=== PATIENT | female | born 1955 | race Caucasian/White ===

== ENCOUNTER → 2017-12-18 11:11 | Outpatient (CLI) | payer MEDICARE, SELFPAY ==
[2017-12-18 12:23] LABS: Amphetamine Urine VISTA NEGATIVE (<1000 ng/mL); Barbiturate Urine VISTA NEGATIVE (< 200 ng/mL); Benzodiazepine Urine VISTA NEGATIVE (< 200 ng/mL); Cocaine Urine VISTA NEGATIVE (< 300 ng/mL); Ecstacy Urine VISTA NEGATIVE (< 500 ng/mL); Methadone Urine VISTA NEGATIVE (< 300 ng/mL); PCP Urine VISTA NEGATIVE (< 25 ng/mL); THC Urine VISTA NEGATIVE (< 50 ng/mL); Vista UDS pH Range 7
== END ==
PROVIDERS: Family Provider Internal Medicine; PCP Internal Medicine; Visit Provider Anesthesiology Pain Medicine
DX: F11.20 Opioid dependence, uncomplicated (principal); M51.26 Other intervertebral disc displacement, lumbar region
CPT/HCPCS: 80307

== ENCOUNTER 2023-03-17 09:58 | Emergency (ER) | payer MEDICARE, MEDICAID, SELFPAY ==
[2023-03-17 09:59] VITALS: BP 136/75; PULSE 89; RESP 16; TEMP 36.2; O2SAT 97; BMI 31.6
--- NOTE | 2023-03-17 10:27 | EDS_ITS ---
HPI History of Present Illness Chief Complaint: Back Informant: patient and family Narrative Narrative: Worsening right-sided lower back pain rating down her right leg to her ankle. No weakness. No loss of bowel or bladder control. Been having on and off sciatica symptoms for the past 30 years. Currently on gabapentin 600 mg twice daily. Recently use ibuprofen with some improvement. No improvement of baclofen. None taken today. She seen Dr. Munguia in the past, had injections however last time was 5 years ago which helped her symptoms. Has tolerated Percocet in the past. She states was inactive for a month due to cataract surgery started on housework 2 days ago when symptoms started. Prior similar symptoms: Yes and With Prior Back Pain PFSH PFS Medical History Diabetes Herniated cervical disc Home Medications ondansetron 4 mg disintegrating tablet 4 mg PO Q8H PRN PRN Nausea #10 tabs 07/02/15 [Rx Last Taken Unknown] ibuprofen 600 mg tablet 600 mg PO Q6H PRN PRN pain #20 TABLETS 03/17/23 [Rx Last Taken Unknown] oxycodone-acetaminophen 5 mg-325 mg tablet 1 tab PO Q6H PRN PRN Pain 3 days #12 TABLETS 03/17/23 [Rx Last Taken Unknown] Allergy/AdvReac Type Severity Reaction Status Date / Time ciprofloxacin [From Cipro] Allergy Rash Verified 03/17/23 09:59 ciprofloxacin HCl Allergy Rash Verified 03/17/23 09:59 [From Cipro] codeine Allergy Rash Verified 03/17/23 09:59 Penicillins [PCN] Allergy Swelling Verified 03/17/23 09:59 Surgical History H/O eye surgery History of laparoscopic cholecystectomy History of tonsillectomy Social History Smoking Status: Former smoker ROS ROS ED Constitutional Constitutional ED: Denies chills, fever(s) or sweats Eyes Eyes: Denies change in vision ENT ENT ED: Denies dysphagia or sore throat Cardiovascular Cardiovascular: Denies chest pain, leg edema, palpitations or racing heartbeat Respiratory/Chest Respiratory/Chest: Denies cough, dyspnea or dyspnea on exertion Gastrointestinal Gastrointestinal: Denies abdominal pain, diarrhea, nausea or vomiting Genitourinary Genitourinary ED: Denies dysuria, hematuria or urinary frequency Musculoskeletal Musculoskeletal: Reports back pain; Denies extremity pain or neck pain Integumentary Denies rash or wounds Neurologic Neurologic: Denies headache(s), paresthesias or weakness EXAM Physical Exam Const Vital Signs: 03/17/23 09:59 Temperature 97.2 F L Temperature Source Temporal Pulse Rate 89 Respiratory Rate 16 Blood Pressure 136/75 H Blood Pressure Mean 95 Pulse Ox 97 Oxygen Delivery Method Room Air Positive well nourished and well developed General Appearance ED: well developed and NAD HEENT Reports moist mucous membranes normocephalic and atraumatic Eyes PERRL, EOMs intact bilaterally and conjunctivae normal General Eye ED: Yes normal appearance of both eyes Neck no lymphadenopathy and supple General: Negative for tenderness Chest Wall Chest: Negative for tenderness Resp normal respiratory effort and normal air movement Effort and Inspection: symmetric chest movement; Negative for respiratory distress Cardio regular rate, regular rhythm and no murmurs Peripheral Pulses: pulses 2+ throughout GI normal to inspection, nondistended, normoactive bowel sounds and non-tender Palpation: Negative for guarding or rebound tenderness present Back/Spine no CVA tenderness Back/Spine Narrative: No midline tenderness mild paralumbar tenderness straight leg test negative 1+ patellar reflex bilaterally. Pulses intact distally. Extremity normal to inspection General Extremety ED: Negative for edema or tenderness General Extremity: Negative for edema Neuro oriented x3 and no sensory deficits noted Sensorium / Orientation: awake and alert Skin no rashes or lesions noted and no wounds MDM MDM MDM Narrative Medical decision making narrative: Interventions / MDM: Differential diagnosis: Sciatica, disc herniation, degenerative disc disease Diagnosis considered but do not suspect: No cauda equina symptoms My EKG interpretation: N/A Imaging independently reviewed and interpreted by myself: N/A External documents reviewed: N/A Test considered but not ordered:N/A ED course: Patient presented with sciatica symptoms. She is diabetic states recent sugars 140. She seen Dr. Munguia in the past with injections been 5 years ago. She is currently on gabapentin. Treated with Toradol Kenalog in the ED. She will monitor her glucose. She will follow-up with Dr. Munguia as an outpatient further treatment as needed. Prescription for ibuprofen and short course of oxycodone to use as needed. Of note she does not seen pain management for 5 years PCP writes her gabapentin. All questions answered. Re-evaluation: stable Disposition discussed with patient/family/significant other: Patient and family Case discussed with consulting clinician: N/A This note was generated with [email or web address] dictation software. It may contain incorrect words, spelling, and punctuation that were not noted in checking the note before signing. Discharge Plan Triage Chief Complaint: Back ED Provider: Kostas Dailey Dx/Rx/DC Orders Clinical Impression: Right-sided low back pain with sciatica, History of diabetes mellitus Instructions: ED Sciatica Prescriptions: New ibuprofen 600 mg tablet 600 mg PO Q6H PRN PRN (Reason: pain) Qty: 20 0RF oxycodone-acetaminophen [oxycodone-acetaminophen] 5-325 mg tablet 1 tab PO Q6H PRN PRN (Reason: Pain) 3 Days Qty: 12 0RF No Action ondansetron 4 MG tablet 4 mg PO Q8H PRN PRN (Reason: Nausea) Qty: 10 0RF Primary Care Provider: Mayra Lucero Referrals: Fidencio Munguia DO [Non-Staff] - 1 Week if not improving Mayra Lucero MD [Primary Care Provider] - Activity Restrictions/Additional Instructions: Continue gabapentin. Take medication as prescribed. Status post Kenalog monitor your blood glucose. Follow-up with Dr. Munguia for further treatment as he has helped in the past. Disposition Disposition: Home, Self Care
[2023-03-17] MEDS: Ketorolac 30 MG/ML Syringe IM (10:32)
[2023-03-17] MEDS: Triamcinolone Acetonide 40 MG/ML Vial IM (10:32)
== END 2023-03-17 11:31 | disposition home or self-care (01) ==
LOC: ED 10:46
PROVIDERS: Emergency Provider Emergency Medicine; PCP Internal Medicine; Visit Provider Emergency Medicine
DX: M54.41 Lumbago with sciatica, right side (principal); E11.9 Type 2 diabetes mellitus without complications; Z87.891 Personal history of nicotine dependence; Z79.899 Other long term (current) drug therapy
CPT/HCPCS: 96372; 99283

== ENCOUNTER 2024-09-08 10:17 | Emergency (ER) | payer MEDICARE, MEDICAID, SELFPAY ==
[2024-09-08 10:17] VITALS: BP 142/65; PULSE 101; RESP 18; TEMP 36.6; O2SAT 98
[2024-09-08 10:20] VITALS: BMI 35.4
--- NOTE | 2024-09-08 10:25 | EX.ED.DYSGE1 ---
HPI History of Present Illness Chief Complaint: General Illness [facility] Medical History Diabetes Herniated cervical disc Home Medications ?Medication ?Instructions ?Recorded ?Last Taken ?Type ondansetron 4 mg disintegrating 4 mg PO Q8H PRN PRN Nausea #10 tabs 07/02/15 Unknown Rx tablet ibuprofen 600 mg tablet 600 mg PO Q6H PRN PRN pain #20 03/17/23 Unknown Rx TABLETS oxycodone-acetaminophen 5 mg-325 1 tab PO Q6H PRN PRN Pain 3 days 03/17/23 Unknown Rx mg tablet #12 TABLETS oxycodone 5 mg tablet 5 mg PO Q6H PRN pain 4 days #16 09/08/24 Unknown Rx tabs Allergy/AdvReac Type Severity Reaction Status Date / Time ciprofloxacin (From Cipro) Allergy Rash Verified 09/08/24 10:18 ciprofloxacin HCl (From Allergy Rash Verified 09/08/24 10:18 Cipro) codeine Allergy Rash Verified 09/08/24 10:18 Penicillins (PCN) Allergy Swelling Verified 09/08/24 10:18 Surgical History H/O eye surgery History of laparoscopic cholecystectomy History of tonsillectomy Social History Smoking Status: Former smoker EXAM Physical Exam Const Vital Signs: 09/08/24 10:17 09/08/24 10:24 09/08/24 14:17 Temperature 98 F Temperature Source Temporal Pulse Rate 101 H 78 Respiratory Rate 18 16 Respiratory Effort Normal Respiratory Pattern Normal Blood Pressure 142/65 H Blood Pressure Mean 90 Pulse Ox 98 98 Oxygen Delivery Method Room Air Room Air MDM MDM MDM Narrative Medical decision making narrative: HISTORY OF PRESENT ILLNESS: 69-year-old female presents with concern for myalgias, headache. Notes this began Saturday started with a headache and noted diffuse bodyaches, notes severe left lower quad abdominal pain and left hip pain. Notes some difficulty ambulating secondary to the pain. Notes low-grade fevers at home. Denies any sick contacts. Denies any cough or shortness of breath. Denies any chest pain. Denies any urinary complaints. Denies any vomiting or diarrhea. REVIEW OF SYSTEMS: Pertinent positives: Myalgia, headache Pertinent negatives: CP, SOB, Fever, Vomiting. PHYSICAL EXAM: Nursing triage notes reviewed, Vital signs reviewed Constitutional: please see [facility] HENT: MMM Eyes: Pupils equal round and reactive to light, Extraocular muscles intact Neck: No stridor, no JVD, full neck ROM Lungs: Clear to auscultation, No wheezing or rales. No increased work of breathing, no conversational dyspnea, no accessory muscle use, no nasal flaring. No respiratory distress noted Heart: Regular rate and rhythm, No murmurs, No rubs and No gallops, 2+ distal pulses (radial, femoral, posterior tibial) in all extremities Abdomen: Soft, there is no tenderness, rigidity, rebound or guarding, no obvious peritoneal signs, no palpable pulsatile abdominal masses, no auscultated abdominal bruit : No CVAT Extremities: No edema Neuro: Alert and oriented x3, neuro exam at baseline, cranial nerves II through XII are intact. No pain with extraocular muscle movement. There is negative test of skew. 5 of 5 strength in upper and lower extremities in flexion extension. Intact sensation to light touch in upper and lower extremity dermatomes. No truncal or extremity ataxia. No dysdiadochokinesia. Normal gait. 2+ reflexes in upper and lower extremities. No meningeal signs. Negative Babinski. NIH of 0. Skin: No rash or lesions noted MEDICAL DECISION MAKING: Chief Complaint: Myalgia, headache External records reviewed: Reviewed prior imaging studies Factors affecting care: Hyperlipidemia, type 2 diabetes, hypertension, anxiety, sciatica Social determinants of health: none History obtained from others: none Consults: none [facility] Narrative: The patient was initially hemodynamically stable, afebrile and nontoxic-appearing. Exam without focal deficits. Left hip TTP with walking however no palpable joint effusion, no redness, no warmth, no pain on forced exam, no exquisite pain with range of motion I considered the following differential diagnosis: ICH, diverticulitis or other acute intra-abdominal pathology, left hip fracture dislocation, septic arthritis, UTI, pneumonia, COVID, RSV, flu I obtained a broad lab and imaging workup to further elucidate etiology of the patient's complaints. I initially treat the patient with IV morphine, 5 mg of IV Reglan and eventually once I sure the patient had no intracranial bleeding IV Toradol. ALL IMAGES (IF OBTAINED) HAVE BEEN PERSONALLY REVIEWED AND INTERPRETED BY MYSELF. CT scan of the head shows no evidence of ICH CT scan abdomen/pelvis shows no evidence of acute intra-abdominal pathology CT scan of the left hip shows no evidence of fracture or dislocation, signs of inflammation or effusion to suggest septic arthritis. CT scan did show joint space narrowing consistent with likely arthritis which may be the precipitating cause of her left hip pain High-sensitivity troponin is negative, no evidence of myocardial ischemia CBC with no leukocytosis, mild anemia, no thrombocytopenia BMP without evidence of significant electrolyte abnormalities, no anion gap, no acute kidney injury. LFTs show no evidence of hepatobiliary pathology. UA with evidence of urinary inflammation but no obvious urinary infection COVID/flu/RSV are negative The synthesis of the patient's history, physical exam, labs and images suggest no acute life-limiting etiology specifically no sign of septic arthritis at this time. The patient was able to ambulate here without significant difficulty after anti-inflammatories and narcotic pain She will be discharged with oral narcotics and instructions to take Tylenol and ibuprofen. Outpatient orthopedic follow-up arranged for evaluation for left hip osteoarthritis. The patient and/or family, caregivers express understanding. The patient and/or family, caregivers agrees with the plan. Shared decision making: I will have a discussion with the patient and or visitors regarding risk/benefits of further testing or admission. They will be made aware of of the risk/benefits inherent in this decision they will be given the opportunity to voice understanding. Total critical care time today provided was at least 0 minutes. This excludes separately billable procedures. Critical care time (if documented) is secondary to the patient having high probability of clinically significant/life threatening deterioration in the patient's condition which required my urgent intervention. Impression: 1. Left hip pain 2. Left hip arthritis 3. Myalgias Dispo: Discharge home This note was generated with [employer] dictation software. It may contain incorrect words, spelling, and punctuation that were not noted in review of the chart prior to signing. Lab Data Labs: Laboratory Results - last 24 hr 09/08/24 09/08/24 11:10 14:11 WBC 9.1 RBC 4.39 Hgb 11.1 L Hct 35.4 L MCV 80.6 L MCH 25.3 L MCHC 31.4 L RDW Std Deviation 47.3 H RDW Coeff of Yaya 16.0 H Plt Count 281 MPV 10.3 Immature Gran % (Auto) 0.600 Neut % (Auto) 76.0 H Lymph % (Auto) 13.3 L Phelps % (Auto) 9.1 Eos % (Auto) 0.7 Baso % (Auto) 0.3 Absolute Neuts (auto) 6.9 Absolute Lymphs (auto) 1.21 Nucleated RBC % 0 Sodium 138 Potassium 3.9 Chloride 104 Carbon Dioxide 27.0 Anion Gap 7 BUN 11 Creatinine 0.72 Estim Creat Clear Calc 64.83 Est GFR (MDRD) Af Amer 104 Est GFR (MDRD) Non-Af 86 BUN/Creatinine Ratio 15.4 Glucose 146 H Calcium 9.2 Total Bilirubin 0.60 AST 17 ALT 18 Alkaline Phosphatase 55 Troponin I High Sens 3 Total Protein 7.4 Albumin 3.3 Globulin 4.1 Albumin/Globulin Ratio 0.8 L Urine Color Yellow Urine Clarity Clear Urine pH 6.0 Ur Specific Henderson 1.015 Urine Protein Negative Urine Glucose (UA) Normal Urine Ketones Negative Urine Occult Blood 25 H Urine Nitrite Negative Urine Bilirubin 1 H Urine Urobilinogen 4 H Ur Leukocyte Esterase 100 H Urine RBC 0 SEEN Urine WBC 0-5 SEEN Ur Squamous Epith Cells 0-5 SEEN Urine Bacteria 0 SEEN Urine Mucus 0 SEEN Radiography Diagnostic Testing: Clinical Impression(s) from Imaging Studies Abdomen CT 09/08/24 10:47 IMPRESSION: No suspicious solid organ abnormality Retained stool throughout the colon No free intraperitoneal fluid, air, or suspicious adenopathy Uterus is present, the endometrium cannot be accurately evaluated with CT Electronically Signed: Tong Veras MD at 13:17 EST , Brain CT 09/08/24 10:47 IMPRESSION: Age consistent changes, no acute findings Electronically Signed: Tong Veras MD at 13:18 EST , Lower Extremity CT 09/08/24 10:47 IMPRESSION: Age consistent degenerative changes, no acute findings Electronically Signed: Tong Veras MD at 13:20 EST , Chest X-Ray 09/08/24 12:04 IMPRESSION: No acute pulmonary process Electronically Signed: Tong Veras MD at 12:14 EST , Discharge Plan Triage Chief Complaint: General Illness ED Provider: Dale Mortensen Dx/Rx/DC Orders Clinical Impression: Arthritis of hip Instructions: ED Osteoarthritis Prescriptions: New oxycodone 5 mg tablet 5 mg PO Q6H PRN (Reason: pain) 4 Days Qty: 16 0RF No Action ondansetron 4 MG tablet 4 mg PO Q8H PRN PRN (Reason: Nausea) Qty: 10 0RF ibuprofen 600 mg tablet 600 mg PO Q6H PRN PRN (Reason: pain) Qty: 20 0RF oxycodone-acetaminophen [oxycodone-acetaminophen] 5-325 mg tablet 1 tab PO Q6H PRN PRN (Reason: Pain) 3 Days Qty: 12 0RF Primary Care Provider: Mayra Lucero Referrals: Mayra Lucero MD [Primary Care Provider] - Hugo Jean-Baptiste DO [Med Staff - Active Staff] - Activity Restrictions/Additional Instructions: Thank you for trusting us with your care today! I suspect your left hip pain is secondary to age-related degenerative changes and left hip arthritis. Please take Tylenol (2 pills, 650 mg), ibuprofen (2 pills, 400 mg) every 6 hours as needed for pain and fever control. Please take oxycodone as needed for breakthrough pain if the above regimen does not control your pain. Please return to the emergency department if your symptoms change or worsen. Please follow with your primary care physician and orthopedic surgery for further outpatient evaluation and management. Print Language: Pashto Disposition Disposition: Home, Self Care
--- NOTE | 2024-09-08 10:47 | CT_ITS ---
STUDY: CT BRAIN WITHOUT CONTRAST REASON FOR EXAM: Female, 69 years old. Severe headache RADIATION DOSAGE (If Supplied By Facility): CTDIvol = ( 44.99 ) mGy, DLP = ( 779.24 ) mGycm TECHNIQUE: Transaxial CT imaging of the brain was performed without administration of intravenous contrast material. Individualized dose optimization techniques were used for this CT. COMPARISON: No relevant priors. FINDINGS: Normal soft tissue structures. Normal calvarium. Normal size ventricles and extra-axial spaces for the patient''s age. Normal white matter tracts of the cerebral hemispheres. Normal basal ganglia and thalami. Normal brainstem. Normal cerebellum. There is no intracranial hemorrhage. There are no findings of an acute ischemic infarction. Normal visualized paranasal sinuses. CT/Brain/Head without Contrast IMPRESSION: Age consistent changes, no acute findings Electronically Signed: Tong Veras MD at 13:18 EST ,
--- NOTE | 2024-09-08 10:47 | CT_ITS ---
STUDY: CT LEFT HIP REASON FOR EXAM: Female, 69 years old. Pain, stiffness CONTRAST: None. TECHNIQUE: Transaxial imaging of the hip was performed with reformatted sagittal and coronal images. The protocol utilizes one or more of the following dose reduction techniques: automated exposure control, adjustment of mA and/or kV according to patient size,and/or use of iterative reconstruction technique. COMPARISON: No relevant prior comparison study available FINDINGS: HIP Normal hip joint with age consistent articular joint space narrowing. Normal acetabulum. Normal femoral neck and intertrochanteric region. VISUALIZED OSSEOUS PELVIS Normal superior and inferior pubic rami. Normal pubic symphysis. Normal bilateral ischial tuberosity. Normal visualized iliac wing, sacroiliac joint, and sacral ala. Normal visualized soft tissue structures of the pelvis. CT/Extremity Lower without Contra IMPRESSION: Age consistent degenerative changes, no acute findings Electronically Signed: Tong Veras MD at 13:20 EST ,
--- NOTE | 2024-09-08 10:47 | CT_ITS ---
STUDY: CT ABDOMEN AND PELVIS WITHOUT CONTRAST REASON FOR EXAM: Female, 69 years old. Left lower quadrant abdominal pain RADIATION DOSAGE (If Supplied By Facility): CTDIvol = ( 11.94 ) mGy, DLP = ( 614.50 ) mGycm TECHNIQUE: Transaxial images were obtained from the dome of the diaphragm to the symphysis pubis with oral contrast, and without intravenous contrast. Sagittal and coronal images were reconstructed. Individualized dose optimization techniques were used for this CT. COMPARISON: None. FINDINGS: The visualized lung bases are unremarkable. The visualized portions of the heart are within normal limits. Normal liver. There are surgical clips in the gallbladder fossa consistent with a prior cholecystectomy. Normal spleen. Normal pancreas. Normal bilateral adrenal glands. Normal right kidney. Normal left kidney. Normal visualized stomach. Normal small intestine. Retained stool throughout the colon There is non-visualization of the appendix. Normal abdominal aorta. Normal inferior vena cava. Normal retroperitoneum. Normal urinary bladder. The uterus is present, the endometrium cannot be accurately evaluated with CT. Normal abdominal wall. There are degenerative changes of the visualized lumbar spine and pelvis. CT/Abdomen/Pel W ORAL Cont Only IMPRESSION: No suspicious solid organ abnormality Retained stool throughout the colon No free intraperitoneal fluid, air, or suspicious adenopathy Uterus is present, the endometrium cannot be accurately evaluated with CT Electronically Signed: Tong Veras MD at 13:17 EST ,
--- NOTE | 2024-09-08 10:47 | EKG12_ITS ---
Test Reason : GENERAL Blood Pressure : */* mmHG Vent. Rate : 89 BPM Atrial Rate : 89 BPM P-R Int : 152 ms QRS Dur : 88 ms QT Int : 364 ms P-R-T Axes : 37 9 33 degrees QTcB Int : 442 ms Normal sinus rhythm Possible Inferior infarct , age undetermined Abnormal ECG Confirmed by TASHI BRANDON MD ([id number]), manager editorial KEKE RAM ([id number]) on 09/10/2024 6:10:36 AM Referred By: Confirmed By: TASHI BRANDON MD
[2024-09-08] MEDS: Metoclopramide 10 MG/2 ML Vial 5 MG IV (11:09)
[2024-09-08] MEDS: Morphine 2 MG/ML Syringe IV (11:09)
[2024-09-08 11:21] LABS: Absolute Lymphocyte Count 1.21 X10^3/uL (0.83-4.51); Absolute Neutrophil Count 6.9 X10^3/uL (2.0-7.7); Basophil# 0.03 X10^3/uL; Basophil% 0.3 % (0-1); Eosinophil# 0.06 X10^3/uL; Eosinophils% 0.7 % (0-5); Hematocrit 35.4 % (37-47); Hemoglobin 11.1 g/dL (12.0-15.0); Lymphocyte # 1.21 X10^3/ul (0.83-4.51); Lymphocyte % 13.3 % (19-41); Mean Corp Hgb Conc 31.4 g/dL (32-36); Mean Corpuscular Hgb 25.3 pg (27.0-32.0); Mean Corpuscular Volume 80.6 fL (81-99); Mean Platelet Vol. 10.3 fl (6.2-12.0); Monocyte# 0.83 X10^3/uL; Monocyte% 9.1 % (0-10); NRBC Flagged by Analyzer 0 % (0-5); Neutrophil # 6.91 X10^3/uL (2.7-7.7); Platelet Count 281 K/mm3 (150-450); RBC Distribution Width SD 47.3 fl (35.1-43.9); Red Blood Count 4.39 M/mm3 (4.2-5.4); White Blood Count 9.1 K/mm3 (4.4-11.0)
[2024-09-08 11:39] LABS: ALB/GLOB Ratio 0.8 RATIO (0.9-2.4); AST(SGOT) 17 U/L (15-37); Alanine Aminotransfer ALT/SGPT 18 U/L (13-56); Albumin, Serum 3.3 g/dL (3.2-5.0); Alkaline Phosphatase 55 U/L (45-117); Anion Gap 7 (5-15); BUN 11 mg/dL (7-18); BUN/Creat Ratio 15.4 RATIO (10-20); Calcium,Total 9.2 mg/dL (8.5-10.1); Chloride 104 mmol/L (98-107); Creatinine, Serum 0.72 mg/dL (0.55-1.02); EST Glomerular Filtration Rate 86 mL/min (>60); Est Glom Filt Rate - Afr Amer 104 mL/min (>60); Estimated Creatinine Clearance 64.83 ml/min; Globulin 4.1 g/dL (2.2-4.2); Glucose 146 mg/dL (74-106); Potassium 3.9 mmol/L (3.5-5.1); Protein, Total 7.4 g/dL (6.4-8.2); Sodium Level 138 mmol/L (136-145); Troponin-I HS 3 pg/mL (3.0-54.0)
--- NOTE | 2024-09-08 12:04 | RAD_ITS ---
STUDY: X-RAY CHEST REASON FOR EXAM: Female, 69 years old. Fever TECHNIQUE: Single AP portable view of the chest. COMPARISON: 2010 FINDINGS: The lungs are clear and expanded. There is no demonstrated pleural abnormality. Normal size heart. Normal mediastinum and kwaku. Normal visualized pulmonary arteries. Normal visualized aortic arch and descending thoracic aorta. There are diffuse degenerative changes of the visualized thoracic spine. Normal visualized ribs, clavicles, and shoulders. There is no demonstrated abnormality of the visualized soft tissue structures of the upper abdomen. RAD/Chest 1 View (Portable) IMPRESSION: No acute pulmonary process Electronically Signed: Tong Veras MD at 12:14 EST ,
[2024-09-08] MEDS: Ketorolac 15 MG/ML Vial IV (13:34)
--- NOTE | 2024-09-08 13:58 | ED.RN ---
Patient ambulated to restroom and given cup for UA sample.
[2024-09-08 14:17] VITALS: PULSE 78; RESP 16; O2SAT 98
[2024-09-08 14:19] LABS: Bacteria 0 SEEN /hpf (None Seen); Mucous, Urine 0 SEEN /hpf (<or=2+); Red Blood Cells-Urine 0 SEEN /hpf (0-5)
[2024-09-08 14:43] LABS: Color, Urine Yellow (Yellow); Glucose, Dipstick Normal (Normal); Ketone-Dipstick Negative (Negative); Leukocyte Esterase-Dipstick 100 /ul (Negative); Nitrite-Dipstick Negative (Negative); Occult Blood-Urine 25 /ul (Negative); Protein-Dipstick Negative (Negative); Specific Gravity, Urine 1.015 (1.002-1.030); Urine Bilirubin Dipstick 1 mg/dL (Negative); Urine Clarity Clear (Clear); Urine Urobilinogen 4 mg/dl (Normal)
[2024-09-08 14:48] LABS: Squamous Epithelial Cells - UA 0-5 SEEN /hpf (5-10); White Blood Cells 0-5 SEEN /hpf (0-5)
[2024-09-08 15:06] VITALS: BP 142/65; PULSE 78; RESP 16; TEMP 36.6; O2SAT 98
== END 2024-09-08 15:13 | disposition home or self-care (01) ==
PROVIDERS: Emergency Provider Emergency Medicine; PCP Internal Medicine; Visit Provider Emergency Medicine
DX: M79.18 Myalgia, other site (principal); M16.12 Unilateral primary osteoarthritis, left hip; Z87.891 Personal history of nicotine dependence
CPT/HCPCS: 70450; 71045; 73700; 74176; 80053; 81001; 84484; 85025; 87631; 93005; 96374; 96375; 99284; A4216

== ENCOUNTER 2025-08-24 10:28 | Emergency (ER) | payer MEDICARE, MEDICAID, SELFPAY ==
[2025-08-24 10:30] VITALS: BP 143/60; PULSE 90; RESP 18; TEMP 35.8; O2SAT 99
--- NOTE | 2025-08-24 11:22 | EDS_ITS ---
HPI History of Present Illness Chief Complaint: Abd Pain Informant: patient and family Narrative Narrative: 70-year-old female presenting to the emergency room with right sided abdominal pain vomiting and diarrhea. Patient states that symptomology began yesterday. She denies any fevers. No cough runny nose sore throat. She was worried about her appendix so she came to emergency. The patient denies any urinary symptoms. She thinks that she saw some blood mixed in with the diarrhea which she describes as brown. She denies any prior colon surgeries or diagnoses. [facility] Medical History Herniated cervical disc Diabetes Home Medications ?Medication ?Instructions ?Recorded ?Last Taken ?Type ondansetron 4 mg disintegrating 4 mg PO Q8H PRN PRN Na usea #10 tabs 07/02/15 Unknown Rx tablet ibuprofen 600 mg tablet 600 mg PO Q6H PRN PRN pain # 20 03/17/23 Unknown Rx TABLETS oxycodone-acetaminophen 5 mg-325 1 tab PO Q6H PRN PRN Pain 3 days 03/17/23 Unknown Rx mg tablet #12 TABLETS oxycodone 5 mg tablet 5 mg PO Q6H PRN pain 4 days #16 09/08/24 Unknown Rx tabs Allergy/AdvReac Type Severity Reaction Status Date / Time ciprofloxacin (From Cipro) Allergy Rash Verified 08/24/25 10:30 ciprofloxacin HCl (From Allergy Rash Verified 08/24/25 10:30 Cipro) codeine Allergy Rash Verified 08/24/25 10:30 Penicillins (PCN) Allergy Swelling Verified 08/24/25 10:30 Surgical History History of tonsillectomy History of laparoscopic cholecystectomy H/O eye surgery Social History Smoking Status: Former smoker ROS ROS ED Constitutional Constitutional ED: Denies chills, fever(s) or weight loss Eyes Eyes: Denies change in vision or diplopia ENT ENT ED: Denies ear pain, rhinorrhea or sore throat Cardiovascular Cardiovascular: Denies chest pain, orthopnea, palpitations or racing heartbeat Respiratory/Chest Respiratory/Chest: Denies cough, dyspnea or orthopnea Gastrointestinal Gastrointestinal: Reports abdominal pain, diarrhea, nausea and vomiting Genitourinary Genitourinary ED: Denies dysuria, hematuria or urinary frequency Musculoskeletal Musculoskeletal: Denies arthralgias or myalgias Integumentary Denies abscess or rash Neurologic Neurologic: Denies headache(s) or weakness Psychiatric Psychiatric: Denies anxiety, depression, suicidal ideation or suicidal thoughts Endocrine Endocrinology: Denies polydipsia, polyphagia or polyuria Allergic/Immunologic Allergic/Immunologic ED: Denies mouth swelling, tongue swelling or urticaria EXAM Physical Exam Const Vital Signs: 08/24/25 10:30 Temperature 96.4 F L Temperature Source Temporal Pulse Rate 90 Respiratory Rate 18 Blood Pressure 143/60 H Blood Pressure Mean 87 Pulse Ox 99 Oxygen Delivery Method Room Air Positive well nourished and well developed General Appearance ED: well developed and NAD HEENT Reports normocephalic, head/scalp atraumatic and moist mucous membranes Eyes PERRL and EOMs intact bilaterally Neck no lymphadenopathy, supple and no JVD Resp normal respiratory effort and clear to auscultation bilaterally Cardio regular rate, regular rhythm and no murmurs GI Inspection: Negative for abdominal distention Auscultation: normoactive bowel sounds Palpation: soft and tender RLQ; Negative for guarding or rebound tenderness present Back/Spine no CVA tenderness and normal ROM Extremity normal to inspection General Extremety ED: Negative for edema General Extremity: Negative for edema Neuro oriented x3 and CN's II-XII intact bilaterally Sensorium / Orientation: alert Motor Exam: strength 5/5 throughout Psych mental status grossly normal Mood & Affect: Negative for depressed or tearful Skin no rashes or lesions noted and no wounds Discharge Plan Triage Chief Complaint: Abd Pain ED Provider: Bruno Garcia Dx/Rx/DC Orders Prescriptions: No Action ondansetron 4 MG tablet 4 mg PO Q8H PRN PRN (Reason: Nausea) Qty: 10 0RF ibuprofen 600 mg tablet 600 mg PO Q6H PRN PRN (Reason: pain) Qty: 20 0RF oxycodone-acetaminophen [oxycodone-acetaminophen] 5-325 mg tablet 1 tab PO Q6H PRN PRN (Reason: Pain) 3 Days Qty: 12 0RF oxycodone 5 mg tablet 5 mg PO Q6H PRN (Reason: pain) 4 Days Qty: 16 0RF Primary Care Provider: Mayra Lucero Referrals: Mayra Lucero MD [Primary Care Provider, Internal Medicine] Print Language: Telugu
--- NOTE | 2025-08-24 11:22 | EX.ED.DYSGE1 ---
HPI History of Present Illness Chief Complaint: Abd Pain Informant: patient and family Narrative Narrative: 70-year-old female presenting to the emergency room with right sided abdominal pain vomiting and diarrhea. Patient states that symptomology began yesterday. She denies any fevers. No cough runny nose sore throat. She was worried about her appendix so she came to emergency. The patient denies any urinary symptoms. She thinks that she saw some blood mixed in with the diarrhea which she describes as brown. She denies any prior colon surgeries or diagnoses. [facility] Medical History Herniated cervical disc Diabetes Home Medications ?Medication ?Instructions ?Recorded ?Last Taken ?Type baclofen 10 mg tablet 10 mg PO DAILY PRN pain 08/24/25 08/22/25 History empagliflozin 10 mg tablet 10 mg PO DAILY 08/24/25 08/24/25 History (Jardiance) fluoxetine 10 mg capsule 10 mg PO DAILY anxiety 08/24/25 08/24/25 History gabapentin 600 mg tablet 600 mg PO BID 08/24/25 08/23/25 History ibuprofen 600 mg tablet 600 mg PO Q6H PRN pain 08/24/25 08/23/25 History insulin glargine 100 unit/mL (3 23 unit subcut DAILY blood sugar 08/24/25 08/24/25 History mL) subcutaneous pen (Lantus Solostar U-100 Insulin) lisinopril 2.5 mg tablet 2.5 mg PO DAILY 08/24/25 08/23/25 History magnesium 200 mg tablet 250 mg PO DAILY supplement 08/24/25 08/24/25 History metformin 500 mg tablet 1,000 mg PO BID 08/24/25 08/24/25 History omeprazole 20 mg capsule,delayed 20 mg PO DAILY 08/24/25 08/23/25 History release ondansetron 4 mg disintegrating 4 mg PO Q6H PRN PRN Nausea #15 tabs 08/24/25 Unknown Rx tablet pioglitazone 30 mg tablet 30 mg PO DAILY 08/24/25 08/23/25 History semaglutide 2 mg/dose (8 mg/3 mL) 2 mg subcut QWEEK 08/24/25 08/21/25 History subcutaneous pen injector (Ozempic) simvastatin 40 mg tablet 40 mg PO QHS 08/24/25 08/23/25 History Allergy/AdvReac Type Severity Reaction Status Date / Time ciprofloxacin (From Cipro) Allergy Rash Verified 08/24/25 10:30 ciprofloxacin HCl (From Allergy Rash Verified 08/24/25 10:30 Cipro) codeine Allergy Rash Verified 08/24/25 10:30 Penicillins (PCN) Allergy Swelling Verified 08/24/25 10:30 Surgical History History of tonsillectomy History of laparoscopic cholecystectomy H/O eye surgery Social History Smoking Status: Former smoker ROS ROS ED Constitutional Constitutional ED: Denies chills, fever(s) or weight loss Eyes Eyes: Denies change in vision or diplopia ENT ENT ED: Denies ear pain, rhinorrhea or sore throat Cardiovascular Cardiovascular: Denies chest pain, orthopnea, palpitations or racing heartbeat Respiratory/Chest Respiratory/Chest: Denies cough, dyspnea or orthopnea Gastrointestinal Gastrointestinal: Reports abdominal pain, diarrhea, nausea and vomiting Genitourinary Genitourinary ED: Denies dysuria, hematuria or urinary frequency Musculoskeletal Musculoskeletal: Denies arthralgias or myalgias Integumentary Denies abscess or rash Neurologic Neurologic: Denies headache(s) or weakness Psychiatric Psychiatric: Denies anxiety, depression, suicidal ideation or suicidal thoughts Endocrine Endocrinology: Denies polydipsia, polyphagia or polyuria Allergic/Immunologic Allergic/Immunologic ED: Denies mouth swelling, tongue swelling or urticaria EXAM Physical Exam Const Vital Signs: 08/24/25 10:30 08/24/25 12:28 Temperature 96.4 F L Temperature Source Temporal Pulse Rate 90 70 Respiratory Rate 18 16 Blood Pressure 143/60 H 138/68 H Blood Pressure Mean 87 91 Pulse Ox 99 99 Oxygen Delivery Method Room Air Positive well nourished and well developed General Appearance ED: well developed and NAD HEENT Reports normocephalic, head/scalp atraumatic and moist mucous membranes Eyes PERRL and EOMs intact bilaterally Neck no lymphadenopathy, supple and no JVD Resp normal respiratory effort and clear to auscultation bilaterally Cardio regular rate, regular rhythm and no murmurs GI Inspection: Negative for abdominal distention Auscultation: normoactive bowel sounds Palpation: soft and tender RLQ; Negative for guarding or rebound tenderness present Back/Spine no CVA tenderness and normal ROM Extremity normal to inspection General Extremety ED: Negative for edema General Extremity: Negative for edema Neuro oriented x3 and CN's II-XII intact bilaterally Sensorium / Orientation: alert Motor Exam: strength 5/5 throughout Psych mental status grossly normal Mood & Affect: Negative for depressed or tearful Skin no rashes or lesions noted and no wounds MDM MDM MDM Narrative Medical decision making narrative: Differential diagnosis includes gastroenteritis colitis diverticulitis appendicitis epiploic appendagitis mesenteric adenitis kidney stone acute kidney injury dehydration hepatitis UTI Basic blood work shows a white count of 8.3 hemoglobin 12.7 platelet count 309. BMP shows a glucose of 137 anion gap of 14 BUN of 17 creatinine 0.92. Liver enzymes showed an AST of 66 and ALT of 61 alkaline phosphatase of 77 normal bilirubin. Lipase is normal at 37 urinalysis no overt infection. CT of the abdomen pelvis was obtained does not show any findings consistent with appendicitis. Please see radiologist read for full details. at this point I think the patient can be discharged home. Diagnosis to be viral gastroenteritis. I will write for Betito. Would encourage oral hydration and advancing diet. History & Record Review Discussion w/independent historian: Patient and Family (Daughter) Lab Data Attestation: I reviewed the patient's lab results. Labs: Laboratory Results - last 24 hr 08/24/25 11:15 WBC 8.3 RBC 4.97 Hgb 12.7 Hct 41.0 MCV 82.5 MCH 25.6 L MCHC 31.0 L RDW Std Deviation 47.0 H RDW Coeff of Yaya 15.7 H Plt Count 309 MPV 10.5 Immature Gran % (Auto) 2.400 H Neut % (Auto) 79.8 H Lymph % (Auto) 8.9 L Payne % (Auto) 8.2 Eos % (Auto) 0.1 Baso % (Auto) 0.6 Absolute Neuts (auto) 6.7 Absolute Lymphs (auto) 0.74 L Nucleated RBC % 0 Sodium 136 Potassium 5.2 H Chloride 101 Carbon Dioxide 21.8 Anion Gap 14 BUN 17 Creatinine 0.92 Est GFR (MDRD) Non-Af 66 BUN/Creatinine Ratio 18.4 Glucose 137 H Calcium 9.8 Total Bilirubin 0.31 Direct Bilirubin < 0.08 AST 66 H ALT 61 H Alkaline Phosphatase 77 Total Protein 7.5 Albumin 4.5 Globulin 3.1 Lipase 37 Urine Color Yellow Urine Clarity Sl. Cloudy Urine pH 5.0 Ur Specific [place] 1.015 Urine Protein 30 H Urine Glucose (UA) 1000 H Urine Ketones Negative Urine Occult Blood 25 H Urine Nitrite Negative Urine Bilirubin Negative Urine Urobilinogen Normal Ur Leukocyte Esterase Negative Urine RBC 0 SEEN Urine WBC 0-5 SEEN Ur Squamous Epith Cells 0 SEEN Urine Bacteria 0 SEEN Urine Mucus 0 SEEN Radiography Diagnostic Testing: Clinical Impression(s) from Imaging Studies Abdomen/Pelvis CT 08/24/25 12:05 IMPRESSION: No acute abdominopelvic abnormalities. Reading Location: [facility] Discharge Plan Triage Chief Complaint: Abd Pain ED Provider: Bruno Garcia Dx/Rx/DC Orders Clinical Impression: Gastroenteritis, Abdominal pain Instructions: Abdominal Pain, ED Gastroenteritis, Viral (Adult) Prescriptions: New ondansetron 4 mg tablet,disintegrating 4 mg PO Q6H PRN PRN (Reason: Nausea) Qty: 15 0RF No Action ibuprofen 600 mg tablet 600 mg PO Q6H PRN (Reason: pain) metformin 500 mg tablet 1,000 mg PO BID gabapentin 600 mg tablet 600 mg PO BID Patient Comments: pt only takes at night time simvastatin 40 mg tablet 40 mg PO QHS baclofen 10 mg tablet 10 mg PO DAILY PRN (Reason: pain) fluoxetine 10 mg capsule 10 mg PO DAILY omeprazole 20 mg capsule,delayed release(DR/EC) 20 mg PO DAILY pioglitazone 30 mg tablet 30 mg PO DAILY lisinopril 2.5 mg tablet 2.5 mg PO DAILY insulin glargine [Lantus Solostar U-100 Insulin] 100 unit/mL (3 mL) insulin pen 23 unit subcut DAILY Jardiance 10 mg tablet 10 mg PO DAILY Ozempic 2 mg/dose (8 mg/3 mL) pen injector 2 mg subcut QWEEK Patient Comments: every saturday magnesium 200 mg tablet 250 mg PO DAILY Primary Care Provider: Mayra Lucero Referrals: Mayra Lucero MD [Primary Care Provider, Internal Medicine] - 3-5 Days if not improving Print Language: [place]
[2025-08-24 11:26] LABS: Mucous, Urine 0 SEEN /hpf (<or=2+); Red Blood Cells-Urine 0 SEEN /hpf (0-5); Squamous Epithelial Cells - UA 0 SEEN /hpf (5-10)
[2025-08-24] MEDS: 0.9% Normal Saline (1000mL) 1,000 ML 999 ML IV (11:28)
[2025-08-24 11:30] LABS: Color, Urine Yellow (Yellow); Glucose, Dipstick 1000 mg/dl (Normal); Ketone-Dipstick Negative (Negative); Leukocyte Esterase-Dipstick Negative /ul (Negative); Nitrite-Dipstick Negative (Negative); Occult Blood-Urine 25 /ul (Negative); Protein-Dipstick 30 mg/dl (Negative); Specific Gravity, Urine 1.015 (1.002-1.030); Urine Bilirubin Dipstick Negative (Negative)
[2025-08-24 11:31] LABS: Hematocrit 41.0 % (37-47); Hemoglobin 12.7 g/dL (12.0-15.0); Immature Granulocytes Count 0.200 X10^3/uL (0.0-0.0); Mean Corp Hgb Conc 31.0 g/dL (32-36); Mean Corpuscular Volume 82.5 fL (81-99); Mean Platelet Vol. 10.5 fl (6.2-12.0); NRBC Flagged by Analyzer 0 % (0-5); Platelet Count 309 K/mm3 (150-450); RBC Distribution Width CV 15.7 % (11.6-14.6); RBC Distribution Width SD 47.0 fl (35.1-43.9); Red Blood Count 4.97 M/mm3 (4.2-5.4); White Blood Count 8.3 K/mm3 (4.4-11.0)
[2025-08-24 11:53] LABS: AST(SGOT) 66 U/L (<=31); Alanine Aminotransfer ALT/SGPT 61 U/L (<=34); Albumin, Serum 4.5 g/dL (3.4-4.8); Alkaline Phosphatase 77 U/L (35-104); Anion Gap 14 (5-15); BUN 17 mg/dL (4-19); BUN/Creat Ratio 18.4 RATIO (10-20); Bilirubin, Direct < 0.08 mg/dL (0.00-0.30); Calcium,Total 9.8 mg/dL (7.6-11.0); Carbon Dioxide 21.8 mmol/L (21.0-32.0); Chloride 101 mmol/L (98-108); Globulin 3.1 g/dL (2.2-4.2); Glucose 137 mg/dL (70-99); Lipase 37 U/L (13-75); Potassium 5.2 mmol/L (3.3-5.1)
--- NOTE | 2025-08-24 12:05 | CT_ITS ---
PROCEDURE: ABDOMEN/PELVIS W IV CONT ONLY 08/24/2025 REASON FOR EXAM: RLQ PAIN TECHNIQUE: Procedure Code: [id number] Modality: CT Procedure: ABDOMEN/PELVIS W IV CONT ONLY Coronal and Sagittal reconstruction series were provided. CONTRAST: OMNIPAQUE 350 VOLUME: 75 mL One or more dose reduction techniques were used (e.g., Automated exposure control, adjustment of the mA and/or kV according to patient size, use of iterative reconstruction technique. RADIATION DOSE SUMMARY: CTDlvol: 20.25 mGy DLP: 994.84 mGycm COMPARISON: CT abdomen and pelvis September 08, 2024. FINDINGS: Lung bases: Dependent changes in the lower lobes. Liver: Unremarkable. Gallbladder: Cholecystectomy. Spleen: Unremarkable. Pancreas: Unremarkable. Adrenals: Unremarkable. Kidneys: Unremarkable. No hydronephrosis. Bladder: Unremarkable. Reproductive Organs: Unremarkable. Bowel: No bowel wall thickening. No bowel obstruction. Appendix: Unremarkable. Lymph nodes: No lymphadenopathy. Vasculature: No aneurysm. Atherosclerotic calcifications. Peritoneum / Retroperitoneum: No free air or free fluid. Bones: No acute bony abnormalities. CT/Abdomen/Pelvis W IV Cont ONLY IMPRESSION: No acute abdominopelvic abnormalities. Reading Location: [facility]
[2025-08-24 12:28] VITALS: BP 138/68; PULSE 70; RESP 16; O2SAT 99
[2025-08-24 13:22] VITALS: BP 138/82; PULSE 72; RESP 14; TEMP 36.6; O2SAT 99
== END 2025-08-24 13:36 | disposition home or self-care (01) ==
LOC: ED 11:38
PROVIDERS: Emergency Provider Emergency Medicine; PCP Internal Medicine; Visit Provider Emergency Medicine
DX: A08.4 Viral intestinal infection, unspecified (principal); E11.9 Type 2 diabetes mellitus without complications; Z79.4 Long term (current) use of insulin; Z79.84 Long term (current) use of oral hypoglycemic drugs; Z79.85 Long-term (current) use of injectable non-insulin antidiabetic drugs; Z87.891 Personal history of nicotine dependence
CPT/HCPCS: 74177; 80048; 80076; 81001; 83690; 85025; 96361; 96374; 96375; 99283; Q9967; J2405